=== PATIENT | female | born 1935 | race Caucasian/White ===

== ENCOUNTER 2016-12-13 10:52 | Emergency (ER) | payer MEDICARE, OTHER ==
[~2016-12-13] VITALS: Ht 154.9 cm; Wt 90.9 kg
[~2016-12-13 10:52] MED LIST: AGGRENOX 25 MG-1 CAP PO; ASPIRIN81 M1 PO; BP MED; CALCIUM 1,0001 EAC1 PO; CELEBREX200 M1 PO; CENTRUM SILVER1 EAC6 PO; COZAAR50 M1 PO; EPA-DHA SOFTGEL1 CAP; FISH OIL 1,0001 EA10 PO; LIPITOR10 M1 PO; LOSARTAN POTASS50 M1 PO; METOPROLOL SUCC25 M1 PO; NAMENDA XR28 M1 PO; NORVASC2.5 M1 PO; TOPROL XL25 MG; TYLENOL PM EX-S1 TAB; VITAMIN D400 UNI3
[2016-12-13] MEDS ORDERED: PLAVIX75 M1 PO (10:59)
[2016-12-13] MEDS ORDERED: ARICEPT5 M1 PO (11:01)
[2016-12-13] MEDS ORDERED: FEOSOL325 M1 PO (11:02)
[2016-12-13] MEDS ORDERED: OMEPRAZOLE40 M2 PO (11:05)
[2016-12-13 11:27] LABS: BASO % 0.1 % (0-2); EOS % 0.4 % (0-7); HCT-HEMATOCRIT 46.2 % (34.0-49.0); HGB-HEMOGLOBIN 15.2 gm/dl (12.0-15.5); LYMPH ABSOLUTE COUNT 0.8 tho/cmm (0.8-4.5); MCH (MEAN CORPUSCULAR HGB) 30.3 pg (28.0-32.0); MCHC MEAN CORPUSCULAR HGB CONC 32.9 % (32.0-36.0); MCV (MEAN CELL VOLUME) 92.2 fl (82.0-96.0); MEAN PLATELET VOLUME 10.2 cmc (9.4-12.4); MONO % 7.4 % (0-12); MONOCYTE ABSOLUTE COUNT 0.6 tho/cmm (0.0-1.2); NEUTROPHIL ABSOLUTE COUNT 6.2 tho/cmm (1.6-8.0); NEUTROPHIL-AUTOMATED 6.2 tho/cmm (1.6-8.0); NEUTROPHILS % 82.1 % (40-80); PLATELET COUNT 230 tho/cmm (150-450); RED BLOOD COUNT 5.01 mil/cmm (4.00-5.20); WHITE BLOOD COUNT 7.6 tho/cmm (4.0-10.0)
[2016-12-13 11:45] LABS: IRON 57 ug/dl (37-170); IRON BINDING CAPACITY 269 ug/dl (250-450)
[2016-12-13 11:46] LABS: ANION GAP 11 mmol/L (0-20); BLOOD UREA NITROGEN 17 mg/dl (6-24); CALCIUM 8.7 mg/dl (8.5-10.5); CARBON DIOXIDE-VENOUS 26 mmol/L (22-32); CHLORIDE 105 mmol/l (96-110); CREATININE 0.78 mg/dl (0.50-1.10); FERRITIN 65 ng/ml (8-250); GLUCOSE 153 mg/dL (70-110); SODIUM 138 mmol/L (135-145); eGFR VALUE FOR BLACK 81 mL/Min
[2016-12-13 12:04] LABS: URINE APPEARANCE CLEAR; URINE BILIRUBIN NEGATIVE (NEG); URINE BLOOD SMALL (NEG); URINE COLOR YELLOW; URINE GLUCOSE (UA) SMALL (NEG); URINE KETONE NEGATIVE (NEG); URINE LEUKOCYTE ESTERASE NEGATIVE (NEG); URINE NITRITE NEGATIVE (NEG); URINE PROTEIN NEGATIVE (NEG); URINE SPECIFIC GRAVITY 1.015 (1.003-1.030)
[2016-12-13 12:21] LABS: URINE EPITHELIAL CELLS 0-2 /[HPF] (0-10)
[2016-12-13 12:22] LABS: URINE WBC 0-1 /[HPF] (0-5)
== END 2016-12-13 14:44 ==
LOC: EDMED → EDBD 10:52 → EDMED 10:52
PROVIDERS: Emergency Medicine
DX: R42 Dizziness and giddiness (principal); S00.83XA Contusion of other part of head, initial encounter; I10 Essential (primary) hypertension; E78.5 Hyperlipidemia, unspecified; F03.90 Unspecified dementia, unspecified severity, without behavioral disturbance, psychotic disturbance, mood disturbance, and anxiety; H26.9 Unspecified cataract; Z86.73 Personal history of transient ischemic attack (TIA), and cerebral infarction without residual deficits; Z98.49 Cataract extraction status, unspecified eye; Z90.710 Acquired absence of both cervix and uterus; Z79.899 Other long term (current) drug therapy; W18.09XA Striking against other object with subsequent fall, initial encounter; Z98.890 Other specified postprocedural states
CPT/HCPCS: G8978-GP-CK; G8979-GP-CJ; G8980-GP-CK; J7030